=== PATIENT | male | born 1975 | race Caucasian/White ===

== ENCOUNTER → 2024-03-18 | Outpatient (CLI) | payer SELFPAY ==
--- NOTE | 2024-03-18 16:50 | RAD_ITS ---
INDICATION: RADICULOPATHY EXAMINATION/TECHNIQUE: X-RAY - XR Spine Lumbar Min 4 Views COMPARISON: None. FINDINGS: VERTEBRAE: Vertebral body height is maintained however there is scoliotic curvature with mild lateral subluxation of L2 on L3 with subluxation to the RIGHT. Significant endplate sclerosis and osteophyte formation at this level. Additional osteophytes noted at L5-S1, and at the thoracolumbar junction. Normal appearance of visualized sacrum, sacroiliac joints and pelvic ring. DISCS: Significant disc space narrowing at L2 L2-3, additional disc space narrowing at L5-S1. INCLUDED ABDOMEN: Included bowel gas pattern is non-obstructive. RAD/L/S Spine Min 4 Views IMPRESSION: 1. Lumbar spondylosis with disc changes most notable at L2-3 with RIGHT lateral subluxation of L2 on L3. Disc space narrowing osteophyte formation also present at L5-S1. 2. No acute fractures or acute destructive bony process. Electronically Signed: Abelardo Chavis MD at 18:25 EST ,
--- NOTE | 2024-03-18 16:55 | RAD_ITS ---
INDICATION: RADICULOPATHY EXAMINATION/TECHNIQUE: X-RAY - XR Spine Cervical 4 or 5 Views COMPARISON: None. FINDINGS: VERTEBRAE: Vertebral body height is maintained, marginal osteophyte formation is noted most notable at C4-5 C5-6 and C6-7. There is a mild foraminal narrowing greater on the LEFT at C3-4 and C5-6. Foraminal narrowing contributed by uncovertebral joint hypertrophic changes. No destructive bony process noted. Odontoid process has normal appearance. DISCS: Disc spaces are maintained. NECK SOFT TISSUES: No prevertebral soft tissue widening. LUNG APICES: Clear. RAD/Cerv Spine 4 or 5 Views IMPRESSION: 1. No evidence of acute fracture or spondylolisthesis. 2. Cervical spondylosis. There are areas of foraminal narrowing greater on LEFT than RIGHT as detailed. Electronically Signed: Abelardo Chavis MD at 18:22 EST ,
== END | disposition home or self-care (01) ==
PROVIDERS: Referring Provider Chiropractor Orthopedic; Visit Provider Chiropractor Orthopedic
DX: M54.12 Radiculopathy, cervical region (principal); M99.01 Segmental and somatic dysfunction of cervical region; M99.03 Segmental and somatic dysfunction of lumbar region
CPT/HCPCS: 72050; 72110